=== PATIENT | male | born 1975 | race Caucasian/White ===

== ENCOUNTER 2019-06-12 02:06 | Emergency (ER) | payer OTHER ==
[2019-06-12] MEDS ORDERED: NS 0.9% 1000 ML** 1,000 ML IV ONE (02:20)
--- OUTSIDE RECORDS SUMMARY | 2019-06-12 02:36 | XMS REPORT | Summary of Care ---
:1975 Author Organization [facility] Address [address] [address] Care Team Providers Name Role Phone Truong Kline Primary Care Provider Reason for Referral Diagnostic Testing (Routine) Status Reason Specialty Diagnoses / Referred By Referred To Procedures Contact Contact Pending Review Diagnoses CHASE (dyspnea on exertion) Incomplete RBBB Ruth Culver, Procedures STRESS ECHO W/O ST INTERP PA-C [address] [place] [address] Reason for Visit Reason Comments Breathing Problem 1 month Encounter Details Date Type Department Care Team Description 05/30/2019 Office Visit Analia Sampson Ruth Culver DOE (dyspnea on exertion) (Primary Dx); Practice PA-C Incomplete RBBB [address] [place] [id number] [place] [address] [phone] Allergies Active Allergy Reactions Severity Noted Date Comments No Known Allergies 11/09/2007 documented as of this encounter (statuses as of 05/30/2019) Medications Medication Sig Dispensed Refills Start Date End Date Status ibuprofen (MOTRIN) 800 Take 1 Tab by 90 Tab 2 03/01/2014 Active MG Oral Tab mouth EVERY EIGHT HOURS NEEDED for Pain. documented as of this encounter (statuses as of 05/30/2019) Active Problems Problem Noted Date Left ankle pain 03/03/2018 Family history of thyroid cancer 04/30/2014 Left varicocele 10/02/2010 Overview: Large on left and seen by Urology in [place] in past for this. No further .follow up felt needed. Anxiety 03/01/2009 documented as of this encounter (statuses as of 05/30/2019) Resolved Problems Problem Noted Date Resolved Date Umbilical hernia 09/30/2010 10/14/2010 documented as of this encounter (statuses as of 05/30/2019) Immunizations Name Administration Dates Next Due Adacel TdaP 02/17/2006 Influenza (IM) Preservative Free 05/14/2019, 05/13/2015 Influenza (IM) W/Pres 04/30/2014 Influenza Vaccine Whole 02/17/2006 MMR 02/09/2013 TDAP Vaccine 08/06/2017 TETANUS & DIPHTHERIA TOXOID (OVER 7 YRS) 08/06/2017 documented as of this encounter Social History Tobacco Use Types Packs/Day Years Used Date Never Smoker 0 Smokeless Tobacco: Never Used Tobacco Cessation: Counseling Given: No Alcohol Use Drinks/Week oz/Week Comments Yes 4 Standard drinks or equivalent 3.3 Sex Assigned at Date Recorded Not on file documented as of this encounter Last Filed Vital Signs Vital Sign Reading Time Taken Comments Blood Pressure 124/78 05/30/2019 2:10 PM EST Pulse 74 05/30/2019 2:10 PM EST Temperature 36.6 05/30/2019 2:10 PM C (97.9 EST F) Respiratory Rate - - Oxygen Saturation 96% 05/30/2019 2:10 PM EST Inhaled Oxygen Concentration - - Weight 101.2 kg (223 lb 3.2 oz) 05/30/2019 2:10 PM EST Height - - Body Mass Index 29.45 02/14/2019 8:45 AM EST documented in this encounter Progress Notes Ruth Culver PA-C - 05/30/2019 2:20 PM EST PATIENT: Willy Henderson : 1975 DATE OF SERVICE: 05/30/2019 CHIEF COMPLAINT: Chief Complaint Patient presents with ? Breathing Problem 1 month Subjective HISTORY OF PRESENT ILLNESS: Willy Henderson is a 43-y.o. male. Patient presents to the office with concerns of CHASE x 1 month. He notes associated wheezing, chest congestion, mild dry cough, sweats, chest heaviness, and fatigue. He has tried nothing for his symptoms. He has a H of asthma as a child. He has a family history of heart disease. He does not smoke. Past Medical History: Diagnosis Date ? Asthma ? Incarcerated ventral hernia 11/2010 s/p laparoscopic repair 12/12/2010 ? Left varicocele 10/02/2010 ? Mixed anxiety and depressive disorder 2002 ? Psychiatric problem anxiety Family History Problem Relation Age of Onset ? Diabetes Unknown ? Heart Unknown ? Alcohol/Drug Unknown ? Cancer Unknown skin ? Arthritis Mother ? Hypertension Mother ? Hypertension Father ? Cancer Maternal Grandmother leukemia ? CHF Paternal Grandmother ? Heart Disease Paternal Grandfather ? Anesth Problems No family history ? Clotting Disorder No family history ? Kidney Disease No family history ? Thyroid Disease No family history Current Outpatient Medications Medication Sig ? ibuprofen (MOTRIN) 800 MG Oral Tab Take 1 Tab by mouth EVERY EIGHT HOURS NEEDED for Pain. No current facility-administered medications for this visit. Allergies Allergen Reactions ? Nka [No Known Allergies] Social History Socioeconomic History ? Marital status: Single Spouse name: Not on file ? Number of children: Not on file ? Years of education: Not on file ? Highest education level: Not on file Occupational History ? Not on file Social Needs ? Financial resource strain: Not on file ? Food insecurity Worry: Not on file Inability: Not on file ? Transportation needs Medical: Not on file Non-medical: Not on file Tobacco Use ? Smoking status: Never Smoker ? Smokeless tobacco: Never Used Substance and Sexual Activity ? Alcohol use: Yes Alcohol/week: 3.3 standard drinks Types: 4 Standard drinks or equivalent per week ? Drug use: No ? Sexual activity: Yes Partners: Female Lifestyle ? Physical activity Days per week: Not on file Minutes per session: Not on file ? Stress: Not on file Relationships ? Social connections Talks on phone: Not on file Gets together: Not on file Attends methodist service: Not on file Active member of club or organization: Not on file Attends meetings of clubs or organizations: Not on file Relationship status: Not on file ? Intimate partner violence Fear of current or ex partner: Not on file Emotionally abused: Not on file Physically abused: Not on file Forced sexual activity: Not on file Other Topics Concern ? Not on file Social History Narrative ? Not on file Over the last 2 weeks, have you been feeling down, depressed, anxious, or hopeless?: 1 Over the past 2 weeks, have you felt little interest or pleasure in doing things ?: 0 Trouble falling or staying asleep, or sleeping too much?: 0 Feeling tired or having little energy?: 0 Poor appetite or overeating?: 0 Feeling bad about yourself or that you are a failure or have let yourself or your family down?: 0 Trouble concentrating on things, such as reading the newspaper or watching TV?: 0 Moving or speaking so slowly that other people notice OR being fidgety and restless?: 0 Thoughts that you would be better off or of hurting yourself in some way?: 0 PHQ-9 TOTAL SCORE: 1 REVIEW OF SYSTEMS: Review of Systems Constitutional: Positive for diaphoresis and malaise/fatigue. Negative for fever. HENT: Positive for congestion. Negative for ear pain and sore throat. Respiratory: Positive for cough, shortness of breath and wheezing. Negative for sputum production. Cardiovascular: Negative for chest pain, palpitations, orthopnea and leg swelling. Gastrointestinal: Positive for heartburn (occ, weekly). Neurological: Negative for dizziness. Objective PHYSICAL EXAM: VITALS: BP 124/78 | Pulse 74 | Temp 97.9 F (36.6 C) | Wt 223 lb 3.2 oz (101.2 kg) | SpO2 96% | BMI 29.45 kg/m Body mass index is 29.45 kg/m . Physical Exam Constitutional: General: He is not in acute distress. Appearance: Normal appearance. He is not ill-appearing. HENT: Head: Normocephalic and atraumatic. Right Ear: Tympanic membrane, ear canal and external ear normal. Left Ear: Tympanic membrane, ear canal and external ear normal. Nose: Mucosal edema and congestion (clear) present. No rhinorrhea. Mouth/Throat: Mouth: Mucous membranes are moist. Pharynx: Oropharynx is clear. No pharyngeal swelling, oropharyngeal exudate or posterior oropharyngeal erythema. Eyes: General: Right eye: No discharge. Left eye: No discharge. Conjunctiva/sclera: Conjunctivae normal. Pupils: Pupils are equal, round, and reactive to light. Cardiovascular: Rate and Rhythm: Normal rate and regular rhythm. Heart sounds: Normal heart sounds. No murmur. Pulmonary: Effort: Pulmonary effort is normal. Breath sounds: Normal breath sounds. Abdominal: General: Bowel sounds are normal. There is no distension. Palpations: Abdomen is soft. Tenderness: There is no abdominal tenderness. There is no guarding or rebound. Musculoskeletal: Right lower leg: No edema. Left lower leg: No edema. Lymphadenopathy: Cervical: No cervical adenopathy. Skin: General: Skin is warm and dry. Neurological: General: No focal deficit present. Mental Status: He is alert. Psychiatric: Mood and Affect: Mood normal. Behavior: Behavior normal. ASSESSMENT / IMPRESSION: ICD-9-CM ICD-10-CM 1. CHASE (dyspnea on exertion) 786.09 R06.09 NT PROBNP CBC NO DIFFERENTIAL COMPREHENSIVE METABOLIC PANEL XR CHEST 2 VIEW PA AND LATERAL (STANDARD) THYROID STIMULATING HORMONE AMBULATORY 12 LEAD EKG (GLOBAL) STRESS ECHO W/O ST INTERP LDL, DIRECT HDL CHOLESTEROL CHOLESTEROL CANCELED: LIPID PROFILE CANCELED: PFT ROUTINE STUDIES 2. Incomplete RBBB 426.4 I45.10 STRESS ECHO W/O ST INTERP LDL, DIRECT HDL CHOLESTEROL CHOLESTEROL Plan -EKG with incomplete RBBB. Non specific t wave changes. -Will obtain labs and CXR. -Stress echo ordered. -Discussed s/sx's that warrant ER evaluation. Patient states understanding. -Follow up pending results. Author: Ruth Culver PA-C 05/30/2019 14:53 documented in this encounter Plan of Treatment Date Type Specialty Care Team Description 08/16/2019 Office Visit [facility] Truong Kline, DO [address] [place] [address] [phone] Name Type Priority Associated Diagnoses Date/Time XR CHEST 2 VIEW PA Imaging Routine CHASE (dyspnea on 05/30/2019 2:45 PM EST AND LATERAL exertion) (STANDARD) Name Type Priority Associated Diagnoses Order Schedule NT PROBNP Lab Routine CHASE (dyspnea on Expected: 05/30/2019 exertion) (Approximate), Expires: 05/29/2020 CBC NO DIFFERENTIAL Lab Routine CHASE (dyspnea on Expected: 05/30/2019 exertion) (Approximate), Expires: 05/29/2020 COMPREHENSIVE METABOLIC Lab Routine CHASE (dyspnea on Expected: 05/30/2019 PANEL exertion) (Approximate), Expires: 05/29/2020 XR CHEST 2 VIEW PA AND Imaging Routine CHASE (dyspnea on Expected: LATERAL (STANDARD) exertion) 05/30/2019, Expires: 05/29/2020 THYROID STIMULATING Lab Routine CHASE (dyspnea on Expected: 05/30/2019 HORMONE exertion) (Approximate), Expires: 05/29/2020 STRESS ECHO W/O ST INTERP CV Lab Routine CHASE (dyspnea on Expected: exertion) 05/30/2019, Expires: Incomplete RBBB 07/03/2020 LDL, DIRECT Lab Routine CHASE (dyspnea on Expected: 05/30/2019 exertion) (Approximate), Incomplete RBBB Expires: 05/29/2020 HDL CHOLESTEROL Lab Routine CHASE (dyspnea on Expected: 05/30/2019 exertion) (Approximate), Incomplete RBBB Expires: 05/29/2020 CHOLESTEROL Lab Routine CHASE (dyspnea on Expected: 05/30/2019 exertion) (Approximate), Incomplete RBBB Expires: 05/29/2020 Health Maintenance Due Date Last Done Comments DIABETES SCREENING 08/20/2019 08/19/2018, 06/17/2016, 05/13/2015 DEPRESSION SCREENING 05/29/2020 05/30/2019, 05/30/2019 LIPID DISORDER SCREENING 08/20/2023 08/19/2018, 06/17/2016, 08/05/2004, Additional history exists DTaP/Tdap/Td Vaccines (2 - 08/07/2027 08/06/2017, 08/06/2017 Tdap) INFLUENZA VACCINE Completed 05/14/2019, 05/13/2015, 04/30/2014, Additional history exists HEPATITIS A IMMUNIZATION Aged Out No longer eligible SERIES based on patient's age to complete this topic HPV IMMUNIZATION SERIES Aged Out No longer eligible based on patient's age to complete this topic MENINGOCOCCAL VACCINE IMM Aged Out No longer eligible based on patient's age to complete this topic PNEUMOCOCCAL 0-64 YRS Aged Out No longer eligible based on patient's age to complete this topic documented as of this encounter Implants Implanted Type Area Juke Box Mechanic Device Shelf Expiration Model / Identifier Date Serial / Lot Mesh, Parietex Skirted Med, 10cm X 15cm - [id number] [facility] [id number] / Implanted: Qty: 1 on 12/12/2010 at [facility] / [id number] Description:VENTRAL HERNIA documented as of this encounter Procedures Procedure Name Priority Date/Time Associated Comments Diagnosis AMBULATORY 12 LEAD Routine 05/30/2019 2:19 PM CHASE (dyspnea on Results for this EKG (GLOBAL) EST exertion) procedure are in the results section. documented in this encounter Results AMBULATORY 12 LEAD EKG (GLOBAL) (05/30/2019 2:19 PM EST) Ventricular Rate 73 BPM CARDIOLOGY DEPARTMENT Atrial rate 73 BPM CARDIOLOGY DEPARTMENT P-R Interval 146 ms CARDIOLOGY DEPARTMENT QRS Duration 100 ms CARDIOLOGY DEPARTMENT Q-T Interval 382 ms CARDIOLOGY DEPARTMENT QTC Calculation 420 ms CARDIOLOGY (Bezet) DEPARTMENT P [place] -7 degrees CARDIOLOGY DEPARTMENT R [place] -18 degrees CARDIOLOGY DEPARTMENT T [place] 20 degrees CARDIOLOGY DEPARTMENT Diagnosis Line Normal sinus rhythm CARDIOLOGY Incomplete right bundle branch block DEPARTMENT Minimal voltage criteria for LVH, may be normal variant Borderline ECG Confirmed by SILAS ADAMS DO ([id number]) ([id number]), primer expeditor and drier MICHAEL MARTINES ([id number]) on 2:50:08 PM Specimen Performing Organization Address City/State/Zipcode Phone Number CARDIOLOGY DEPARTMENT documented in this encounter Visit Diagnoses Diagnosis CHASE (dyspnea on exertion) Other dyspnea and respiratory abnormality Incomplete RBBB Right bundle branch block documented in this encounter Insurance Payer Benefit Plan / Subscriber ID Effective Dates Phone Address Type Group [employer] CIGNA [facility] [id number] 2015-Present [employer] Guarantor Name Account Type Relation to Date of Phone Billing Patient Address Willy Henderson Personal/Family 1975 [address] [phone] [place], [place] (Work) [address] documented as of this encounter"
--- OUTSIDE RECORDS SUMMARY | 2019-06-12 02:36 | XMS REPORT | Summary of Care ---
:1975 Author Organization [facility] Address [address] [facility] [place] [address] Care Team Providers Name Role Phone Truong Kline Primary Care Provider Reason for Visit Reason Comments Breathing Problem Encounter Details Date Type Department Care Team Description 06/04/2019 Emergency [facility] Emergency Department Blaine Parker MD Emergency [address] [place] [address] [place] [address] [phone] Allergies Active Allergy Reactions Severity Noted Date Comments No Known Allergies 11/09/2007 documented as of this encounter (statuses as of 06/05/2019) Medications Medication Sig Dispensed Refills Start Date End Date Status ibuprofen (MOTRIN) 800 Take 1 Tab by 90 Tab 2 03/01/2014 Active MG Oral Tab mouth EVERY EIGHT HOURS NEEDED for Pain. documented as of this encounter (statuses as of 06/05/2019) Active Problems Problem Noted Date Left ankle pain 03/03/2018 Family history of thyroid cancer 04/30/2014 Left varicocele 10/02/2010 Overview: Large on left and seen by Urology in [place] in past for this. No further .follow up felt needed. Anxiety 03/01/2009 documented as of this encounter (statuses as of 06/05/2019) Resolved Problems Problem Noted Date Resolved Date Umbilical hernia 09/30/2010 10/14/2010 documented as of this encounter (statuses as of 06/05/2019) Immunizations Name Administration Dates Next Due Adacel TdaP 02/17/2006 Influenza (IM) Preservative Free 05/14/2019, 05/13/2015 Influenza (IM) W/Pres 04/30/2014 Influenza Vaccine Whole 02/17/2006 MMR 02/09/2013 TDAP Vaccine 08/06/2017 TETANUS & DIPHTHERIA TOXOID (OVER 7 YRS) 08/06/2017 documented as of this encounter Social History Tobacco Use Types Packs/Day Years Used Date Never Smoker 0 Smokeless Tobacco: Never Used Alcohol Use Drinks/Week oz/Week Comments Yes 4 Standard drinks or equivalent 3.3 Sex Assigned at Date Recorded Not on file documented as of this encounter Last Filed Vital Signs Vital Sign Reading Time Taken Comments Blood Pressure 130/83 06/04/2019 6:00 PM EDT Pulse 79 06/04/2019 6:00 PM EDT Temperature 36.7 06/04/2019 4:22 PM EDT C (98 F) Respiratory Rate 21 06/04/2019 6:00 PM EDT Oxygen Saturation 98% 06/04/2019 6:00 PM EDT Inhaled Oxygen Concentration - - Weight - - Height - - Body Mass Index - - documented in this encounter Discharge Instructions InstructionsBlaine Parker MD - 06/04/2019EKG, vitals and bloodwork are all normal today Please follow up with primary care and with stress test, as previously scheduled. Come back if symptoms worsen or concerns arise documented in this encounter Plan of Treatment Date Type Specialty Care Team Description 06/19/2019 Lab Family Practice 06/22/2019 Orders Only Cardiology 08/16/2019 Office Visit Family Practice Truong Kline, DO [address] [place] [address] [phone] Name Type Priority Associated Diagnoses Date/Time 12-LEAD EKG EKG STAT 06/04/2019 4:58 PM EDT Health Maintenance Due Date Last Done Comments [...] of this encounter Implants Implanted Type Area Truck Technician Device Shelf Expiration Model / Identifier Date Serial / Lot Mesh, Parietex Skirted Med, 10cm X 15cm - [id number] Abdomen COVIDIEN [id number] / Implanted: Qty: 1 on 12/12/2010 at [facility] / [id number] Description:VENTRAL HERNIA documented as of this encounter Procedures Procedure Name Priority Date/Time Associated Diagnosis Comments IN PT/ED 12 LEAD STAT 06/04/2019 4:58 PM EKG EDT CHEM 8 I-STAT Routine 06/04/2019 4:18 PM Results for this (POCT) EDT procedure are in the results section. TROPONIN I-STAT Routine 06/04/2019 4:17 PM Results for this (POCT) EDT procedure are in the results section. documented in this encounter Results CHEM 8 I-STAT (POCT) (06/04/2019 4:18 PM EDT) Sodium i-STAT 138 136 - 145 POINT OF CARE mmol/L TESTING Potassium i-STAT 3.8 3.5 - 5.1 POINT OF CARE mmol/L TESTING Chloride i-STAT 102 98 - 107 POINT OF CARE mmol/L TESTING CO2 i-STAT 26 21 - 32 mmol/L POINT OF CARE TESTING Glucose i-STAT 106 (H) 70 - 99 mg/dl POINT OF CARE Comment: TESTING Adult Normal Range = 70-99 to 30 days Normal Range = 60-99 BUN i-STAT 17 7 - 18 mg/dl POINT OF CARE TESTING Creatinine i-STAT 1.2 0.6 - 1.3 POINT OF CARE mg/dl TESTING Ion Calcium i-STAT 4.80 4.65 - 5.28 POINT OF CARE mg/dL TESTING Hemoglobin i-STAT 12.6 (L) 13.0 - 18.0 POINT OF CARE g/dL TESTING Hematocrit i-STAT 37 35 - 47 %PCV POINT OF CARE TESTING Specimen Blood - Blood specimen (specimen) Performing Organization Address City/State/Zipcode Phone Number POINT OF CARE TESTING TROPONIN I-STAT (POCT) (06/04/2019 4:17 PM EDT) Troponin i-STAT 0.00 0.00 - 0.07 POINT OF CARE Comment: ng/mL TESTING Performed at: [facility] POCT Catalino Warner MD, Laboratory Offc Spec [address] [place] [id number] Specimen Blood - Blood specimen (specimen) Performing Organization Address City/State/[facility] Phone Number POINT OF CARE TESTING documented in this encounter Visit Diagnoses Diagnosis Fatigue, unspecified type documented in this encounter Insurance Payer Benefit Plan / Subscriber ID Effective Dates Phone Address Type Group CIGNA COMMERCIAL CIGNA [facility] [id number] 2015-Present [employer]ign[employer] Guarantor Name Account Type Relation to Date of Phone Billing Patient Address Willy Henderson Personal/Family [address] [phone] [place], [place] (Work) [address] documented as of this encounter
[2019-06-12 02:41] LABS: ABS Basophils 0.1 10^3/ul (0-0.2); ABS Eosinophils 0.2 10^3/ul (0-0.6); ABS Lymphocytes 2.4 10^3/ul (1.0-4.8); ABS Monocytes 0.6 10^3/ul (0-0.8); ABS Neutrophils 5.4 10^3/ul (1.5-7.7); Eosinophil % 2.3 %; Hematocrit 38 % (42-52); Hemoglobin 13.4 g/dL (14.0-18.0); Lymphocyte % 27.6 %; Mean Corpuscular HGB Conc 35 g/dL (31-36); Mean Corpuscular Hemoglobin 30 pg (27-31); Mean Corpuscular Volume 85 fL (80-94); Mean Platelet Volume 7.9 fL (7.4-10.4); Nucleated Red Blood Cells % 0.1; Platelet Count 219 10^3/uL (150-450); Red Blood Count 4.51 10^6 /uL (4.18-5.48); Red Cell Distribution Width 13 % (10-15); White Blood Count 8.8 10^3/uL (3.5-10.8)
[2019-06-12 02:45] LABS: INR 1.11 (0.82-1.09)
[2019-06-12 02:58] LABS: ALT 19 U/L (7-52); AST 6 U/L (13-39); Albumin 3.8 g/dL (3.2-5.2); Albumin/Globulin Ratio 1.5 (1-3); Alkaline Phosphatase 40 U/L (34-104); Anion Gap 6 mmol/L (2-11); BUN/Creatinine Ratio 14.8 (8-20); Blood Urea Nitrogen 17 mg/dL (6-24); CO2 Carbon Dioxide 26 mmol/L (22-32); Chloride 104 mmol/L (101-111); EGFR Non-African American 69.4 (>60); Globulin 2.6 g/dL (2-4); Glucose 117 mg/dL (70-100); Magnesium 1.9 mg/dL (1.9-2.7); Potassium 3.8 mmol/L (3.5-5.0); Sodium 136 mmol/L (135-145); Total Protein 6.4 g/dL (6.4-8.9)
[2019-06-12 03:00] LABS: Troponin I 0.01 ng/mL (<0.03)
[2019-06-12 03:03] LABS: Alcohol < 10 mg/dL (<10)
[2019-06-12 03:18] LABS: TSH (Thyroid Stimulating Horm) 3.41 mcIU/mL (0.34-5.60)
--- NOTE | 2019-06-12 03:25 | ED ---
Syncope/Near Syncope - HPI Summary HPI Summary: Patient is a 44 y/o M presenting to [facility] with complaints of SOB, light- headedness, and syncope. He states that he was on break at work earlier today and decided to do some sit-ups. He states that he became abnormally SOB and light-headed after this. Patient sat down and was talking to some of his co- workers. Patient went to get a cup of coffee but became diaphoretic and hot. He sat down at a table and experienced a syncopal episode. Co-workers called EMS. He notes that he had an episode of light-headedness a few weeks ago while ambulating, but no syncope. Patient reports that he has been experiencing increased SOB (particularly with exertion) for the past six months and more frequently recently. He states that he was evaluated by PCP and [place] [facility] for these Sx, bloodwork and EKG were unconcerning. Patient notes Hx of asthma. No daily medications and no allergies noted. He reports weekly alcohol consumption but denies other substance usage. PSHx of hernia repair in 2010 noted. FMHx of cardiac disease reported. Home medications and allergies are reviewed. - History Of Current Complaint Chief Complaint: EDSyncope Time Seen by Provider: 06/12/19 02:19 Hx Obtained From: Patient Onset/Duration: Resolved Timing: Intermittent Episode Lasting Context: Witnessed Activity At Onset: At Rest Associated Head Trauma: No Associated Signs And Symptoms: Diaphoresis, Dizzy, Lightheadedness, Shortness Of Breath - Allergies/Home Medications Allergies/Adverse Reactions: Allergies Allergy/AdvReac Type Severity Reaction Status Date / Time No Known Allergies Allergy See Comment Verified 06/12/19 03:56 PMH/Surg Hx/FS Hx/Imm Hx Respiratory History: Reports: Hx Asthma Sensory History: Denies: Hx Legally Blind, Hx Deafness Opthamlomology History: Denies: Hx Legally Blind EENT History: Denies: Hx Deafness - Surgical History Surgery Procedure, Year, and Place: hernia repair Infectious Disease History: No Infectious Disease History: Denies: Traveled Outside the [place] in Last 30 Days - Family History Known Family History: Positive: Cardiac Disease - Social History Alcohol Use: Weekly Substance Use Type: Reports: None Smoking Status (MU): Never Smoked Tobacco - Additional Comments History Additional Comments: PMHx of asthma PSHx of hernia repair FMHx of cardiac disease Review of Systems Positive: Skin Diaphoresis Positive: Shortness Of Breath Neurological/Mental Status: Other - positive - light-headedness Positive: Syncope All Other Systems Reviewed And Are Negative: Yes Physical Exam - Summary Physical Exam Summary: General: Well-developed, Well-nourished male. No acute distress. HEENT: Normocephalic, Atraumatic. Eyes: Conjuctiva normal, PERRL. Oropharynx: Clear, mucous membranes moist, (-) exudates. Neck: Soft, FROM, (-) lymphadenopathy, (-) thyromegaly, (-) JVD. Cardiovascular: Normal sinus rhythm, (-) murmur. Lungs: Clear to auscultation bilaterally (-) wheezes, (-) rales, (-) rhonchi. Abdomen: Soft, non-tender, non-distended, (-) organomegaly, normal bowel sounds. Back: (-) CVA tenderness Extremities: No edema. Skin: Warm, dry, (-) rash. Neuro: Alert and oriented x3, moves all extremities equally. No ataxia. No gait disturbance. No sensory deficit. Normal strength, normal sensation. Psychiatric: Mood normal, affect normal. Triage Information Reviewed: Yes Vital Signs On Initial Exam: Initial Vitals Temp Pulse Resp BP Pulse Ox 97.8 F 59 16 107/74 97 06/12/19 02:07 06/12/19 02:07 06/12/19 02:07 06/12/19 02:07 06/12/19 02:07 Vital Signs Reviewed: Yes Procedures - Sedation Patient Received Moderate/Deep Sedation with Procedure: No Diagnostics - Vital Signs Vital Signs Temp Pulse Resp BP Pulse Ox 06/12/19 02:07 97.8 F 59 16 107/74 97 - Laboratory Lab Results: Lab Results 06/12/19 06/12/19 06/12/19 Range/Units 02:31 02:31 02:31 WBC 8.8 (3.5-10.8) 10^3/uL RBC 4.51 (4.18-5.48) 10^6 /uL Hgb 13.4 L (14.0-18.0) g/dL Hct 38 L (42-52) % MCV 85 (80-94) fL MCH 30 (27-31) pg MCHC 35 (31-36) g/dL RDW 13 (10-15) % Plt Count 219 (150-450) 10^3/uL MPV 7.9 (7.4-10.4) fL Neut % (Auto) 62.2 % Lymph % (Auto) 27.6 % Louisa % (Auto) 7.2 % Eos % (Auto) 2.3 % Baso % (Auto) 0.7 % Absolute Neuts (auto) 5.4 (1.5-7.7) 10^3/ul Absolute Lymphs (auto) 2.4 (1.0-4.8) 10^3/ul Absolute Monos (auto) 0.6 (0-0.8) 10^3/ul Absolute Eos (auto) 0.2 (0-0.6) 10^3/ul Absolute Basos (auto) 0.1 (0-0.2) 10^3/ul Absolute Nucleated RBC 0.0 10^3/ul Nucleated RBC % 0.1 INR (Anticoag Therapy) 1.11 H (0.82-1.09) Sodium 136 (135-145) mmol/L Potassium 3.8 (3.5-5.0) mmol/L Chloride 104 (101-111) mmol/L Carbon Dioxide 26 (22-32) mmol/L Anion Gap 6 (2-11) mmol/L BUN 17 (6-24) mg/dL Creatinine 1.15 (0.67-1.17) mg/dL Est GFR ( Amer) 84.0 (>60) Est GFR (Non-Af Amer) 69.4 (>60) BUN/Creatinine Ratio 14.8 (8-20) Glucose 117 H (70-100) mg/dL Lactic Acid (0.5-2.0) mmol/L Calcium 9.0 (8.6-10.3) mg/dL Magnesium 1.9 (1.9-2.7) mg/dL Total Bilirubin 0.40 (0.2-1.0) mg/dL AST 6 L (13-39) U/L ALT 19 (7-52) U/L Alkaline Phosphatase 40 (34-104) U/L Troponin I 0.01 (<0.03) ng/mL Total Protein 6.4 (6.4-8.9) g/dL Albumin 3.8 (3.2-5.2) g/dL Globulin 2.6 (2-4) g/dL Albumin/Globulin Ratio 1.5 (1-3) TSH Pending Serum Alcohol Pending 06/12/19 Range/Units 02:31 WBC (3.5-10.8) 10^3/uL RBC (4.18-5.48) 10^6 /uL Hgb (14.0-18.0) g/dL Hct (42-52) % MCV (80-94) fL MCH (27-31) pg MCHC (31-36) g/dL RDW (10-15) % Plt Count (150-450) 10^3/uL MPV (7.4-10.4) fL Neut % (Auto) % Lymph % (Auto) % Louisa % (Auto) % Eos % (Auto) % Baso % (Auto) % Absolute Neuts (auto) (1.5-7.7) 10^3/ul Absolute Lymphs (auto) (1.0-4.8) 10^3/ul Absolute Monos (auto) (0-0.8) 10^3/ul Absolute Eos (auto) (0-0.6) 10^3/ul Absolute Basos (auto) (0-0.2) 10^3/ul Absolute Nucleated RBC 10^3/ul Nucleated RBC % INR (Anticoag Therapy) (0.82-1.09) Sodium (135-145) mmol/L Potassium (3.5-5.0) mmol/L Chloride (101-111) mmol/L Carbon Dioxide (22-32) mmol/L Anion Gap (2-11) mmol/L BUN (6-24) mg/dL Creatinine (0.67-1.17) mg/dL Est GFR ( Amer) (>60) Est GFR (Non-Af Amer) (>60) BUN/Creatinine Ratio (8-20) Glucose (70-100) mg/dL Lactic Acid 1.1 (0.5-2.0) mmol/L Calcium (8.6-10.3) mg/dL Magnesium (1.9-2.7) mg/dL Total Bilirubin (0.2-1.0) mg/dL AST (13-39) U/L ALT (7-52) U/L Alkaline Phosphatase (34-104) U/L Troponin I (<0.03) ng/mL Total Protein (6.4-8.9) g/dL Albumin (3.2-5.2) g/dL Globulin (2-4) g/dL Albumin/Globulin Ratio (1-3) TSH Serum Alcohol Result Diagrams: 06/12/19 02:31 06/12/19 02:31 Lab Statement: Any lab studies that have been ordered have been reviewed, and results considered in the medical decision making process. - EKG 0227 Cardiac Rate: Bradycardia - rate of 55 BPM EKG Rhythm: Sinus Bradycardia Summary of EKG Findings: EKG showed sinus bradycardia with rate of 55 BPM, no STEMI. ED physician has reviewed and interpreted this EKG. Course/Dx Course Of Treatment: 44-year-old male presents from work by ambulance after episode of syncope. Patient states he is actually been having dyspnea with exertion over the last month. Has been evaluated at his PCPs as well as [facility] emergency room. He states he's had EKGs and blood work done. He does have a stress test scheduled for the end of May. Tonight while he was at work however he developed lightheadedness and sweating shortness of breath. Had an episode of witnessed syncope. States he was sitting at the table in the break room. When he woke up with his head on the table after feeling like he was given pass out. On physical exam patient has no significant abnormal findings. Workup demonstrates a normal EKG. His first troponin is 0.01. His second troponin is 0.02. Patient is signed out at change of shift awaiting a third troponin and disposition. During ED course, patient received fluids. - Diagnoses Provider Diagnoses: Syncope, Dyspnea on exertion Discharge ED - Sign-Out/Discharge Documenting (check all that apply): Sign-Out Patient Signing out patient TO: Sandro Shafer - Discharge Plan Condition: Stable Referrals: No Primary Care Phys,NOPCP [Primary Care Provider] - - Billing Disposition and Condition Condition: STABLE - Attestation Statements Document Initiated by Scribe: Yes Documenting Scribe: JEFF MIRANDA Provider For Whom Scribe is Documenting (Include Credential): CAROLANN ZALDIVAR MD Scribe Attestation: JEFF Samuel, scribed for CAROLANN ZALDIVAR MD on 06/12/19 at 0646. Scribe Documentation Reviewed: Yes Provider Attestation: The documentation as recorded by the scribe, JEFF MIRANDA accurately reflects the service I personally performed and the decisions made by me, CAROLANN ZALDIVAR MD Status of Scribe Document: Viewed
[2019-06-12 04:32] LABS: Urine Appearance Clear; Urine Bilirubin Negative (Negative); Urine Blood Negative (Negative); Urine Color Yellow; Urine Glucose Negative (Negative); Urine Ketones Negative (Negative); Urine Nitrite Negative (Negative); Urine Protein Negative (Negative); Urine Urobilinogen Negative (Negative)
[2019-06-12 04:50] LABS: Urine Benzodiazepine Screen None Detected (None Detect); Urine Opiates Screen None Detected (None Detect)
--- NOTE | 2019-06-12 07:38 | ED ---
Progress - Progress Note Progress Note: The patient is a sign-out from Dr. Dianelys Garcia MD, to Dr. Truong Shafer DO, at change of shift at 0700 pending third troponin and disposition. Third troponin is 0.02. Discussed ordering a stress test for the patient with Dr. Mohr from cardiology , and he agrees. CXR is negative. Patient underwent stress test. Results reveal no evidence for stress-induced ischemia. Patient is safe for discharge. - Results/Orders Results/Orders: CXR Impression: No active cardiopulmonary disease. Dr. Shafer has reviewed this report. Stress Test Results: Maximal heart rate during stress was 145 bpm (82% of maximal predicted heart rate). The maximal predicted heart rate was 177 bpm. The target heart rate was 150 bpm. The target heart rate was achieved. The heart rate response to stress is normal. There is a normal resting blood pressure with an appropriate response to stress. The rate-pressure product for the peak heart rate and blood pressure was 00268 mm Hg/min. Stress ECG: Sinus tachycardia. Baseline: LV global systolic function is normal. The estimated LV ejection fraction is 55-60%. Normal wall motion; no LV regional wall motion abnormalities. Peak stress: LV global systolic function is vigorous. The estimated LV ejection fraction is 75-80%. Normal wall motion; no LV regional wall motion abnormalities. Stress echo results: There is no evidence for stress- induced ischemia. Dr. Shafer has reviewed this report. Re-Evaluation - Re-Evaluation First Eval Re-Evaluation Time: 09:05 Comment: Discussed all results with plan for stress test. Second Eval Re-Evaluation Time: 13:25 Comment: Stress test results discussed with patient. Patient is safe for discharge at this time with PCP follow up. Course/Dx - Course Course Of Treatment: The patient is a sign-out from Dr. Dianelys Garcia MD, to Dr. Truong Shafer DO, at change of shift at 0700 pending third troponin and disposition. Third troponin is 0.02. Patient experiencing exertional CP and SOB. Dr. Mohr from cardiology is agreeable with ordering a stress test for the patient. CXR is negative. Patient underwent stress test. Results reveal no evidence for stress-induced ischemia. All results discussed with patient. Patient is safe for discharge. Patient is advised to follow up with PCP in 1-2 days. Return precautions given. Patient agreeable with plan. - Diagnoses Provider Diagnoses: Syncope, Chest pain - Provider Notifications Discussed Care Of Patient With: Harris Mohr - cardiology Time Discussed With Above Provider: 09:13 Instructed by Provider To: Other - I discussed the patient's case with Dr. Mohr ; he is agreeable with ordering a stress test. Discharge ED - Sign-Out/Discharge Documenting (check all that apply): Patient Departure - Patient will be discharged home., Receiving Sign-Out Receiving patient FROM: Dianelys Garcia - Patient is a sign-out from Dr. Dianelys Garcia MD, at change of shift at 0700 on 06/12/19, pending third troponin and disposition. - Discharge Plan Condition: Stable Disposition: HOME Patient Education Materials: Chest Pain (DC), Syncope (DC) Referrals: [facility] [Outside] - 2 Days Additional Instructions: Follow up with your primary care provider in 1-2 days. Return to the emergency department for any new or worsening symptoms. - Billing Disposition and Condition Condition: STABLE Disposition: Home - Attestation Statements Document Initiated by Jose: Yes Documenting Scribe: Leeanna Gill Provider For Whom Jose is Documenting (Include Credential): Truong Shafer DO Scribcher Attestation: ILeeanna scribed for Truong Shafer DO on 06/12/19 at 1714. Scribe Documentation Reviewed: Yes Provider Attestation: The documentation as recorded by the Leeanna gilbert accurately reflects the service I personally performed and the decisions made by me, Truong Shafer DO Status of Scribcher Document: Viewed Procedures - Sedation Patient Received Moderate/Deep Sedation with Procedure: No
[2019-06-12] MEDS ORDERED: Perflutren Lipid Microsphere* 3 ML VIAL ONE (11:58)
--- NOTE | 2019-06-12 13:00 | STRESS ---
"*[facility]* [place] [address] Fax #: [phone] Stress Echocardiogram Ney protocol Patient: Willy Henderson : 1975 Study Date: 06/12/2019 Age: 44 Gender: M HR: 69 bpm Height: 72.8 in /185 cm BSA: 2.29 m^2 Weight: 220 lb /100 kg BMI: 29.2 kg/m^2 *Order Booker: * Virginie Hung [facility] *Referring Physician: * Truong ShaferReading Physician: * Harris Mohr MD Indications: Chest Pain, unspecified. Syncope. History: Risk factors: Family history is significant for coronary artery disease. Conclusions Summary: Normal maximal stress echocardiogram. No evidence of ischemia. Study data: Stress echocardiogram Consent: The risks and benefits of the procedure, including alternatives were discussed with the patient and/or their health care insurance representative and written informed consent was obtained. Procedure: Initial setup: Surface ECG leads and manual cuff blood pressure measurements were monitored throughout the procedure. A baseline ECG was recorded. Treadmill exercise testing was performed using the Ney protocol. The patient exercised for 7 min 35 sec, to protocol stage 3, to a maximal work rate of 10.1 mets. Exercise was terminated due to dyspnea and due to fatigue. The patient was positioned for image acquisition and recovery monitoring. Transthoracic stress echocardiography. Image quality was adequate. Images were captured at baseline and peak exercise. Intravenous contrast Definity, 5 mlswas administered. Location: Echo laboratory. Patient status: Outpatient. Patient location: Stress lab. Patient room number: ED 5. Study completion: There were no complications. Findings Baseline ECG: Normal sinus rhythm. Cardiac stress table: +--------+---+ + |Stage |HR |BP | +--------+---+ + |Baseline|69 |113/68 (83)| +--------+---+ + |Stage 2 |126|140/70 (93)| +--------+---+ + |Stage 3 |145|152/72 (99)| +--------+---+ + Stress results: Maximal heart rate during stress was 145 bpm (82% of maximal predicted heart rate). The maximal predicted heart rate was 177 bpm.The target heart rate was 150 bpm.The target heart rate was achieved. The heart rate response to stress is normal. There is a normal resting blood pressure with an appropriate response to stress. The rate-pressure product for the peak heart rate and blood pressure was 70949 mm Hg/min. Stress ECG: Sinus tachycardia. Baseline: LV global systolic function is normal. The estimated LV ejection fraction is 55-60%. Normal wall motion; no LV regional wall motion abnormalities. Peak stress: LV global systolic function is vigorous. The estimated LV ejection fraction is 75-80%. Normal wall motion; no LV regional wall motion abnormalities. Stress echo results: There is no evidence for stress-induced ischemia. Prepared and electronically signed by Harris Mohr MD 06/12/2019 12:59"
[2019-06-12 13:58] VITALS: BP 111/78
== END 2019-06-12 13:57 | disposition home or self-care (01) ==
LOC: ED 02:06
DX: R55 Syncope and collapse (principal); R07.9 Chest pain, unspecified; J45.909 Unspecified asthma, uncomplicated
CPT/HCPCS: 36415; 71045; 80053; 80307; 80320; 81003; 83605; 83735; 83880; 84443; 84484; 85025; 85379; 85610; 93005; 93351; 96360; 99284; G0480